=== PATIENT | male | born 1955 | race Caucasian/White ===

== ENCOUNTER 2017-08-14 10:17 | Day surgery (SDC) | payer MEDICARE ==
--- NOTE | 2017-08-14 08:48 | HP ---
DATE OF SURGERY: 08/14/2017 HISTORY OF PRESENT ILLNESS: The patient is a 62 year-old with diagnosis of head and neck cancer now in need of alf IV access for IV treatments. I feel he is a candidate for Port-A-Cath placement. PAST MEDICAL HISTORY: Initially diagnosed with head and neck cancer. Tonsillar cancer. He had some pins in his right knee in the past. He had some chronic obstructive pulmonary disease. He has seen Dr. Polanco, Dr. Grady and Dr. Cordon in the past. PAST SURGICAL HISTORY: He had aneurysm back in 2012. MEDICATIONS: None on a regular basis. ALLERGIES: NKDA. FAMILY HISTORY: Negative in regards to this problem. SOCIAL HISTORY: No alcohol abuse. He is a former smoker. REVIEW OF SYSTEMS: Twelve systems reviewed per admission assessment. No current chest pain or palpitations other systems negative or noncontributory as above and per preadmission questionnaire. PHYSICAL EXAMINATION: GENERAL: No acute distress. HEENT: Sclerae nonicteric. NECK: No JVD. CHEST: Equal excursion, nonlabored breathing. CVS: Regular rate and rhythm. ABDOMEN: Soft. No peritoneal signs. EXTREMITIES: No edema or cyanosis. NEURO: Alert, moving extremities symmetrically. No gross motor deficits noted. IMPRESSION: History of head and neck cancer. He is in need of Port-A-Cath for IV treatments. I feel he is a candidate. He was shown the risk sheet and explained the procedure in detail but not limited to bleeding, infection, risk of thrombosis or pneumothorax, risk of hematoma or seroma formation, risk of Port-A-Cath fracture or failure possibly requiring removal or replacement. Small risk of arterial injury, small risk of major venous tear possibly requiring other procedure, ongoing morbidity, remote risk of mortality, general risk of anesthesia or sedation but not limited to. He understands and agrees to the planned procedure and will proceed with Port-A-Cath placement as an outpatient under MAC anesthesia.
[~2017-08-14 10:17] MED LIST: CEFAZOLIN 2 GM-D5W BAG** 2 GM/50 ML ML IV ONE; Lactated Ringers 1,000 ML IV ONE; Lactated Ringers 1,000 ML IV SCH
[2017-08-14] MEDS ORDERED: DIPRIVAN 200 MG/20 ML IV ONE (10:18)
[2017-08-14] MEDS ORDERED: Ketamine HCl 50 MG/ML IJ ONE (10:18)
[2017-08-14 10:50] VITALS: O2SAT 95
[2017-08-14] MEDS ORDERED: CEFAZOLIN 2 GM-D5W BAG** 2 GM/50 ML ML IV SCH (11:00)
[2017-08-14] MEDS ORDERED: Lactated Ringers 1,000 ML IV ONE (12:19)
[2017-08-14] MEDS ORDERED: XYLOCAINE 1% HCL 20 ML MDV ONE ×2 (12:19→13:34)
--- NOTE | 2017-08-14 14:02 | XRAY ---
Indication: Port placement. Intraoperative fluoroscopy was provided for 3 seconds. Single digital spot image submitted for interpretation demonstrates partially visualized left-sided Port-A-Cath with tip projecting over the SVC. Correlate with intraoperative findings/report.
[2017-08-14 15:09] VITALS: BP 147/82; PULSE 67
--- NOTE | 2017-08-15 09:13 | XRAY ---
3 seconds fluoroscopy time in surgery for port placement.
--- NOTE | 2017-08-15 09:13 | OP ---
SURGERY DATE/TIME: 08/14/2017 1316 PREOPERATIVE DIAGNOSIS: Head and neck cancer need for admission liaison IV access for IV treatment. POSTOPERATIVE DIAGNOSIS: Head and neck cancer need for admission liaison IV access for IV treatment. PROCEDURE: Tunnel Port-A-Cath placement with C-arm fluoroscopy with ultrasound guided interpretation and assisted cannulation left internal jugular vein. SURGEON: Dr. Ernesto Bourne. ANESTHESIA: MAC. 1% lidocaine local. ESTIMATED BLOOD LOSS: Minimal. INDICATIONS: As noted above. Risks and benefits explained in detail and not limited to and consent obtained. DESCRIPTION OF PROCEDURE AND FINDINGS: The patient is taken to the operating room. Neck and chest prepped and draped in usual fashion. MAC anesthesia introduced. After official time out and no disagreement with planned procedure, in Trendelenburg position 1% lidocaine local was infiltrated in left subclavicular area. 18 gauge cannulation needle inserted. On first pass good dark nonpulsatile venous return. Guidewire passed. However on C-arm fluoroscopy this wanted to travel up the neck. I was able to advance it down the superior vena cava. The port was elected to go to the opposite subclavian. 1% lidocaine local was infiltrated. An 18 gauge cannulation inserted. On the first pass good dark nonpulsatile venous return was obtained. However the guide wire did not want to pass on this side either and then it was elected to go the jugular approach and went back using ultrasound sterile probe sleeve, sterile jelly. In Trendelenburg position easily compressible left internal jugular vein. 1% lidocaine local was infiltrated. An 18 gauge cannulation needle inserted on first pass. Good dark nonpulsatile venous return. Picture had been taken per the staff of the vein. Guide wire passed without difficulty confirmed down superior vena cava by C-arm fluoroscopy this was followed by anesthetizing tunnel track and port pocket. Transverse incision made inferior subcu. Port pocket created with aid of cautery. Port secured to the chest wall with Prolene suture x2. Catheter tunneled down from cannulation stab wound down to port pocket area. Dilator and break away sheath easily fed over the guide wire. Catheter fed down break away sheath. The tip was in the distal superior vena cava on C-arm fluoroscopy. Catheter cut to appropriate length and snapped on the port with the hub. The port aspirated dark nonpulsatile venous return with ease. It was flushed with heparinized saline with ease. Lung king noted to be up bilaterally. The tip was in good location. It was felt that no further x-rays were necessary. Good hemostasis noted. Subcu closed with 3-0 Vicryl, skin closed with 4-0 Vicryl. Cannulation stab wound closed with 4-0 Vicryl. Steri-Strips and sterile dressings applied. The patient tolerated the procedure well. There were no immediate complications. Findings discussed with the family out in the waiting area.
== END 2017-08-14 15:11 | disposition home or self-care (01) ==
LOC: SDC 10:17
PROVIDERS: ATTEND Surgery
PROC: 05HN33Z Insertion of Infusion Device into Left Internal Jugular Vein, Percutaneous Approach (ICD-10-PCS; principal; 2017-08-14)
DX: C76.0 Malignant neoplasm of head, face and neck (principal); J44.9 Chronic obstructive pulmonary disease, unspecified; Z87.891 Personal history of nicotine dependence
CPT/HCPCS: 71045; 77001; C1788; J0690; J1642; J2704

== ENCOUNTER 2018-05-07 11:09 | Day surgery (SDC) | payer MEDICARE ==
--- NOTE | 2018-05-07 09:19 | HP ---
DATE OF SURGERY: 05/07/2018 HISTORY OF PRESENT ILLNESS: The patient is a 62 year-old with prior history of head and neck cancer. His last CT scan was okay. He got approval from Dr. Perez to go ahead and remove his port as it is no longer needed at this point. PAST MEDICAL HISTORY: Head and neck cancer. PAST SURGICAL HISTORY: Aneurysm 07/11/2017. Port placement in the past. MEDICATIONS: None on a regular basis. ALLERGIES: NKDA. FAMILY HISTORY: Negative in regards to this specific problem. SOCIAL HISTORY: No alcohol abuse. REVIEW OF SYSTEMS: Twelve systems reviewed per admission assessment. No current chest pain or palpitations, other systems negative or noncontributory as above and per preadmission questionnaire. He had prior head, neck and tonsillar cancer in the past. Cancer in the past. PHYSICAL EXAMINATION: GENERAL: No acute distress. HEENT: Sclerae nonicteric. NECK: No JVD. CHEST: Equal excursion, nonlabored breathing. Port site okay. CVS: Regular rate and rhythm. ABDOMEN: Soft. No peritoneal signs. EXTREMITIES: No significant edema. NEURO: Alert, oriented, moving extremities symmetrically. No gross motor deficits noted. IMPRESSION: Undesired Port-A-Cath that is no longer using and past history of head and neck cancer. Plan on removal of Port-A-Cath as an outpatient under IV sedation or MAC. Risks and benefits explained in detail including but not limited to bleeding or infection, small risk of hematoma or seroma formation, small risk of wound infection possibly requiring packing, general risk of aches, pain, burning or numbness. He understands there is a rare risk if the catheter is scarred in too bad may need to tie off the catheter and just remove the port itself. He understands all the above as well as risk of sedation, deep venous thrombosis, pulmonary embolism, pneumonia but not limited to. Will proceed with removal of Port-A-Cath as an outpatient.
[~2018-05-07 11:09] MED LIST changes: -CEFAZOLIN 2 GM-D5W BAG** 2 GM/50 ML ML IV ONE; -Lactated Ringers 1,000 ML IV ONE; -Lactated Ringers 1,000 ML IV SCH; +Sensorcaine 0.25% 10 ML ONE
[2018-05-07] MEDS ORDERED: DIPRIVAN 200 MG/20 ML IV ONE (11:10)
[2018-05-07] MEDS ORDERED: Ketamine HCl 50 MG/ML IJ ONE (11:10)
[2018-05-07] MEDS ORDERED: Lactated Ringers 1,000 ML IV ONE (11:23)
[2018-05-07] MEDS ORDERED: Lactated Ringers 1,000 ML IV SCH (11:30)
[2018-05-07] MEDS ORDERED: XYLOCAINE 1% HCL 20 ML MDV ONE (12:21)
[2018-05-07] MEDS ORDERED: KEFZOL 1 GM ONE (13:46)
[2018-05-07 14:52] VITALS: BP 114/77; O2SAT 100
[2018-05-07 15:38] VITALS: PULSE 52
--- NOTE | 2018-05-08 10:06 | OP ---
SURGERY DATE/TIME: 05/07/2018 1338 PREOPERATIVE DIAGNOSIS: History of head and neck cancer. No longer needing his Port-A-Cath for treatment, desires for removal. POSTOPERATIVE DIAGNOSIS: History of head and neck cancer. No longer needing his Port-A-Cath for treatment, desires for removal. PROCEDURE: Removal of tunneled Port-A-Cath. SURGEON: Dr. Ernesto Bourne. SHIPYARD HELPER: Michael, Medical Student III. ANESTHESIA: MAC. 1% lidocaine local. ESTIMATED BLOOD LOSS: Minimal. INDICATIONS: As noted above. Risks and benefits explained in detail and not limited to and consent obtained. DESCRIPTION OF PROCEDURE AND FINDINGS: The patient is taken to the operating room. MAC anesthesia induced. After official time out and no disagreement with planned procedure, the chest prepped and draped in usual sterile fashion. 1% lidocaine local infiltrated in field pattern around the old port site. Dissection carried down through the old scar down to the port. Two Prolene sutures were carefully removed. The port was mobilized up. Port and catheter removed intact and passed off. Tunnel track closed with 3-0 Vicryl. Fibrous pocket closed with 3-0 Vicryl. Subcu closed with 3-0 Vicryl. Skin closed with 4-0 Vicryl. Steri-Strips and sterile dressing applied. The patient tolerated the procedure well. There were no immediate complications. There was no family available to discuss the findings with out in the waiting area.
== END 2018-05-07 15:15 | disposition home or self-care (01) ==
LOC: SDC 11:09
PROVIDERS: ATTEND Surgery
DX: Z45.2 Encounter for adjustment and management of vascular access device (principal); Z85.89 Personal history of malignant neoplasm of other organs and systems
CPT/HCPCS: 94250; J0690; J2704

== ENCOUNTER 2024-06-13 12:18 | Emergency (ER) | payer MEDICARE, OTHER ==
[2024-06-13 12:34] VITALS: RESP 18; TEMP 97.2
--- NOTE | 2024-06-13 13:41 | ERPHSYRPT ---
- History of Present Illness Time Seen by Provider: 06/13/24 12:39 Source: patient Exam Limitations: no limitations Patient Subjective Stated Complaint: . Triage Nursing Assessment: . Physician History: 68 years old male presented in the ER with complaints of bleeding from right lower molar extraction almost 10 days ago. Patient reports he has been having pain off and on and has been taking ibuprofen. Earlier he was chewing something and it started bleeding. Patient reports it stops on its own. No swelling of the jaw. Patient saw his primary care earlier and he sent the prescription of tramadol. No fever or chills reported. Minimal swelling around tooth extraction site. No active spurting or oozing. Minimal tenderness. Patient has no bleeding currently, he is advised to do not chew hard food and do not chew tobacco on right side. Recommended outpatient dental follow-up. I do not think patient needs any active management in the ER. Recommended taking tramadol and not to take ibuprofen Aleve or any other NSAIDs as it might be contributing to his symptoms. Discussed signs symptoms of worsening needing return to ER which he seems understanding. Allergies/Adverse Reactions: No Known Drug Allergies Allergy (Verified 06/13/24 12:32) Home Medications: Lisinopril 10 mg [Zestril 10 MG] 10 mg PO DAILY 12/25/20 [History] Hx Influenza Vaccination/Date Given: No Hx Pneumococcal Vaccination/Date Given: No Immunizations Up to Date: Yes Travel Risk - International Travel Have you traveled outside of the country in past 3 weeks: No - Emerging Infectious Disease Are you exhibiting symptoms associated with any current EIDs: No - Review of Systems Constitutional: No Symptoms Ears, Nose, & Throat: Mouth Pain, Loose Teeth Respiratory: No Symptoms Cardiac: No Symptoms Abdominal/Gastrointestinal: No Symptoms Neurological: No Symptoms - Past Medical History Pertinent Past Medical History: Yes Neurological History: Other ENT History: Other Cardiac History: Aneurysm Respiratory History: COPD, Pneumonia Endocrine Medical History: No Pertinent History Musculoskeletal History: Degenerative Disk Disease, Fractures GI Medical History: No Pertinent History History: No Pertinent History Psycho-Social History: No Pertinent History Male Reproductive Disorders: No Pertinent History Other Medical History: swollen lymph nodes in throat with mild throat restrictions. c neck disk issues with artificial discs. neuropathy to legs and arms. past AAA with surgical repair. cancer in tonsils with radiation and chemo - Past Surgical History Past Surgical History: Yes Neuro Surgical History: No Pertinent History Cardiac: Vascular Surgery Respiratory: No Pertinent History Gastrointestinal: No Pertinent History Genitourinary: No Pertinent History Musculoskeletal: Orthopedic Surgery, Prosthesis, Other Male Surgical History: No Pertinent History Other Surgical History: endovascular repair aaa . cervical fusion. right knee pinned - Social History Smoking Status: Former smoker How long have you smoked: 40 years Exposure to second hand smoke: No Drug Use: none - Social Determinants of Health Will the patient participate in the screening: Declined to provide - Nursing Vital Signs Nursing Vital Signs: Initial Vital Signs Temperature 97.2 F 06/13/24 12:33 Pulse Rate 89 06/13/24 12:33 Respiratory Rate 18 06/13/24 12:33 Blood Pressure 174/100 06/13/24 12:33 O2 Sat by Pulse Oximetry 92 L 06/13/24 12:33 Pain Scale Pain Intensity 5 - Physical Exam General Appearance: no apparent distress, alert Eye Exam: bilateral eye: normal inspection, PERRL, EOMI Ear Exam: bilateral ear: auricle normal, canal normal, TM normal Nasal Exam: normal inspection Throat Exam: normal, pharynx normal, dental tenderness (Clotted blood on the right lower molar. Minimal tenderness.) Neck Exam: normal inspection, non-tender, supple, full range of motion Cardiovascular/Respiratory Exam: regular rate/rhythm, wheezing Neurologic Exam: alert, oriented x 3, cooperative Skin Exam: normal color SpO2 Interpretation: normal SpO2: 92 O2 Delivery: Room Air - Progress Progress: improved Progress Note: 06/13/24 13:39 68 years old male presented in the ER with complaints of bleeding from right lower molar extraction almost 10 days ago. Patient reports he has been having pain off and on and has been taking ibuprofen. Earlier he was chewing something and it started bleeding. Patient reports it stops on its own. No swelling of the jaw. Not taking any blood thinners. No blood dyscrasias. Patient saw his primary care earlier and he sent the prescription of tramadol. No fever or chills reported. Minimal swelling around tooth extraction site. No active spurting or oozing. Minimal tenderness. Patient has no bleeding currently, he is advised to do not chew hard food and do not chew tobacco on right side. Recommended outpatient dental follow-up. I do not think patient needs any active management in the ER. Recommended taking tramadol and not to take ibuprofen Aleve or any other NSAIDs as it might be contributing to his symptoms. Discussed signs symptoms of worsening needing return to ER which he seems understanding. 06/13/24 13:41 Counseled pt/family regarding: diagnosis, need for follow-up Medical Desision Making - Diagnostic Testing Diagnostic test were ordered, analyzed, and reviewed by me: No - Departure Departure Disposition: Home Clinical Impression: Hemorrhage after tooth extraction Condition: Stable Critical Care Time: No Referrals: WILLOW HUYNH MD [Primary Care Provider] - Follow up with PCP 1 day Instructions: Tooth Extraction Additional Instructions: Do not chew tobacco or any other solid on the right side. Do not take hot beverages. Do not take Aleve/ibuprofen/any other NSAIDs and take tramadol as recommended. Follow-up with your dentist for reevaluation in 1 to 2 days. Return to ER for increasing pain swelling, bleeding or if develop fever chills etc.
[2024-06-13 13:54] VITALS: BP 104/74; PULSE 70; O2SAT 93
== END 2024-06-13 13:53 | disposition home or self-care (01) ==
LOC: ED 12:18
DX: K91.840 Postprocedural hemorrhage of a digestive system organ or structure following a digestive system procedure (principal); Z79.891 Long term (current) use of opiate analgesic; Z79.899 Other long term (current) drug therapy
CPT/HCPCS: 99281